=== PATIENT | male | born 1970 | race Caucasian/White ===

== ENCOUNTER 2017-05-25 00:15 | Inpatient (IN) | payer BC ==
[2017-05-25] MEDS ORDERED: DEXTROSE 50% 25 GM / 50ML DISP.SYRIN. IV ×2 (04:30→13:30)
[2017-05-25] MEDS ORDERED: NAPROXEN 500 MG TABLET PO (04:30)
[2017-05-25] MEDS ORDERED: PIP/TAZO PER PHARMACY MC (05:00)
[2017-05-25] MEDS: VANCOMYCIN RANDOM LEVEL. MC (06:00)
[2017-05-25] MEDS: PIPERACILLIN/TAZOBACTAM 4.5 GM in IV NORMAL SALINE 100ML 100 ML IV ×3 (06:24→21:00)
[2017-05-25] MEDS: traMADol 50 MG TABLET PO (06:35)
[2017-05-25 06:42] LABS: BASO # 0.1 x10^3/uL (0.0-0.2); BASO % 1 % (0-3); EOS # 0.1 x10^3/uL (0.0-0.7); EOS % 0 % (0-3); HEMATOCRIT 34.3 % (39.0-53.0); HEMOGLOBIN 11.4 g/dL (13.0-17.5); LYMPH # 0.9 x10^3/uL (1.0-4.8); LYMPH % 5 % (24-48); MEAN CORPUSCULAR HEMOGLOBIN 28 pg (25-35); MEAN CORPUSCULAR HGB CONC 33 g/dL (31-37); MEAN CORPUSCULAR VOLUME 85 fL (79-100); MONO # 1.3 x10^3/uL (0.0-1.1); MONO % 8 % (0-9); NEUT % 87 % (31-73); PLATELET COUNT 249 x10^3/uL (140-400); RED BLOOD COUNT 4.04 x10^6/uL (4.30-5.70); RED CELL DISTRIBUTION WIDTH 13.6 % (11.5-14.5); WHITE BLOOD COUNT 17.4 x10^3/uL (4.0-11.0)
[2017-05-25 06:47] LABS: ADD MAN DIFF? YES
[2017-05-25 06:54] LABS: ANION GAP 8 (6-14); BLOOD UREA NITROGEN 15 mg/dL (8-26); CALCIUM 8.1 mg/dL (8.5-10.1); CARBON DIOXIDE 29 mmol/L (21-32); CHLORIDE 100 mmol/L (98-107); CREATININE 1.3 mg/dL (0.7-1.3); GFR 59.4; GLUCOSE 65 mg/dL (70-99); SODIUM 137 mmol/L (136-145)
[2017-05-25 07:02] LABS: POTASSIUM 2.9 mmol/L (3.5-5.1)
[2017-05-25] MEDS: POTASSIUM CHLORIDE 20 MEQ TABLET.ER. PO ×2 (07:37→14:37)
[2017-05-25 07:55] LABS: POC GLUCOSE 63 mg/dL (70-99)
[2017-05-25] MEDS: INSULIN ASPART 300 UNITS/3 ML INSULN.PEN SQ ×3 (08:00→16:09)
[2017-05-25 08:11] LABS: POC GLUCOSE 143 mg/dL (70-99)
[2017-05-25] MEDS: ENOXAPARIN 40 MG/0.4 ML SYRINGE. SQ (08:32)
[2017-05-25] MEDS: VANCOMYCIN PER PHARMACY MC (08:42)
[2017-05-25 08:58] LABS: % BANDS 23 % (0-9); % LYMPHS 2 % (24-48); % MONOS 4 % (0-10); % SEGS 71 % (35-66); PLT ESTIMATE ADEQUATE (ADEQUATE)
[2017-05-25] MEDS: VANCOMYCIN 1.5 GM in IV DEXTROSE 5 %-0.45 % NACL 500 ML IV ×2 (09:20→21:56)
[2017-05-25 09:38] LABS: MAGNESIUM 2.1 mg/dL (1.8-2.4)
[2017-05-25 11:33] LABS: POC GLUCOSE 146 mg/dL (70-99)
[2017-05-25] MEDS: IV NORMAL SALINE 1000ML BAG 1,000 ML IV (13:59)
[2017-05-25] MEDS: HEPARIN PF for SUB-Q USE 5,000 UNIT/0.5 ML VIAL. SQ ×2 (14:15→21:06)
[2017-05-25] MEDS: MUPIROCIN 2 % NASAL OINTMENT 22GM TUBE. NS ×2 (14:43→21:00)
[2017-05-25] MEDS: ACETAMINOPHEN 325 MG TABLET. PO ×2 (14:43→21:00)
[2017-05-25 16:09] LABS: POC GLUCOSE 149 mg/dL (70-99)
[2017-05-25 20:31] LABS: POC GLUCOSE 276 mg/dL (70-99)
[2017-05-25] MEDS: LACTOBACILLUS RHAMNOSUS GG 1 CAPSULE. PO (20:59)
[2017-05-25] MEDS: INSULIN DETEMIR 300 UNITS/3 ML INSULN.PEN. SQ (21:05)
[2017-05-26] MEDS: PIPERACILLIN/TAZOBACTAM 4.5 GM in IV NORMAL SALINE 100ML 100 ML IV ×3 (05:43→23:25)
[2017-05-26] MEDS: HEPARIN PF for SUB-Q USE 5,000 UNIT/0.5 ML VIAL. SQ ×3 (05:47→21:14)
[2017-05-26 07:57] LABS: POC GLUCOSE 140 mg/dL (70-99)
[2017-05-26] MEDS: POTASSIUM CHLORIDE 20 MEQ TABLET.ER. PO (08:00)
[2017-05-26] MEDS: INSULIN ASPART 300 UNITS/3 ML INSULN.PEN SQ ×3 (08:37→19:00)
[2017-05-26] MEDS: LACTOBACILLUS RHAMNOSUS GG 1 CAPSULE. PO ×2 (09:00→21:00)
[2017-05-26] MEDS: MUPIROCIN 2 % NASAL OINTMENT 22GM TUBE. NS ×2 (09:00→21:00)
[2017-05-26] MEDS ORDERED: MORPHINE SULFATE 2 MG/ML DISP.SYRIN. IV (09:30)
[2017-05-26] MEDS ORDERED: PROCHLORPERAZINE 10 MG/2 ML VIAL. IV (09:30)
[2017-05-26] MEDS ORDERED: LIDOCAINE 1% PF 2 ML VIAL. ID (09:30)
[2017-05-26] MEDS ORDERED: fentaNYL PF VIAL 100 MCG/2 ML VIAL IV ×2 (09:30)
[2017-05-26] MEDS ORDERED: HYDROmorphone 2 MG/ML VIAL IV (09:30)
[2017-05-26] MEDS: VANCOMYCIN 1.5 GM in IV DEXTROSE 5 %-0.45 % NACL 500 ML IV ×2 (09:54→21:00)
[2017-05-26 11:31] LABS: POC GLUCOSE 157 mg/dL (70-99)
[2017-05-26] MEDS: VANCOMYCIN PER PHARMACY MC (12:46)
[2017-05-26] MEDS: IV RINGERS,LACTATED 1000ML 1,000 ML IV (13:02)
[2017-05-26] MEDS ORDERED: LIDOCAINE 2% PF Vial for OR 5 ML VIAL. (16:19)
[2017-05-26] MEDS ORDERED: PROPOFOL 20 ML IV (16:19)
[2017-05-26] MEDS ORDERED: ONDANSETRON PF 4 MG/2 ML VIAL. (16:19)
[2017-05-26] MEDS ORDERED: MIDAZOLAM HCL/PF 2 MG/2 ML VIAL. (16:19)
[2017-05-26] MEDS ORDERED: fentaNYL PF VIAL 100 MCG/2 ML VIAL ×2 (16:19→18:01)
[2017-05-26] MEDS ORDERED: SEVOFLURANE 61 TO 120 MINUTES. IH (16:19)
[2017-05-26] MEDS ORDERED: DEXAMETHASONE SOD PHOS 20 MG/5 ML VIAL. (16:19)
[2017-05-26] MEDS ORDERED: BUPIVACAINE-EPI 0.25%-1:200000 50 ML VIAL. (16:27)
[2017-05-26] MEDS ORDERED: oxyCODONE/APAP 5/325 1 TAB TABLET PO (18:30)
[2017-05-26 20:38] LABS: POC GLUCOSE 246 mg/dL (70-99)
[2017-05-26] MEDS: oxyCODONE/APAP 5/325 1 TAB TABLET PO (21:01)
[2017-05-26] MEDS: INSULIN DETEMIR 300 UNITS/3 ML INSULN.PEN. SQ (21:14)
[2017-05-26] MEDS: ZOLPIDEM 5 MG TABLET. PO (23:25)
[2017-05-27 01:12] LABS: HEMOGLOBIN A1C 9.3 % (4.8-5.6)
[2017-05-27] MEDS: PIPERACILLIN/TAZOBACTAM 4.5 GM in IV NORMAL SALINE 100ML 100 ML IV ×3 (05:41→23:07)
[2017-05-27] MEDS: HEPARIN PF for SUB-Q USE 5,000 UNIT/0.5 ML VIAL. SQ ×3 (05:49→21:08)
[2017-05-27 06:40] LABS: CREATININE 1.3 mg/dL (0.7-1.3)
[2017-05-27 06:40] LABS: GFR 59.4
[2017-05-27] MEDS: POTASSIUM CHLORIDE 20 MEQ TABLET.ER. PO (08:08)
[2017-05-27] MEDS: INSULIN ASPART 300 UNITS/3 ML INSULN.PEN SQ ×5 (08:14→17:03)
[2017-05-27] MEDS: LACTOBACILLUS RHAMNOSUS GG 1 CAPSULE. PO ×2 (08:15→21:10)
[2017-05-27 08:24] LABS: POC GLUCOSE 277 mg/dL (70-99)
[2017-05-27] MEDS: VANCOMYCIN 1.5 GM in IV DEXTROSE 5 %-0.45 % NACL 500 ML IV ×2 (10:00→20:57)
[2017-05-27] MEDS: MUPIROCIN 2 % NASAL OINTMENT 22GM TUBE. NS ×2 (10:01→21:00)
[2017-05-27] MEDS: LOPERAMIDE 2 MG CAPSULE PO (10:02)
[2017-05-27 11:29] LABS: POC GLUCOSE 353 mg/dL (70-99)
[2017-05-27] MEDS: FLUCONAZOLE 100 MG TABLET. PO (12:02)
[2017-05-27] MEDS: oxyCODONE/APAP 5/325 1 TAB TABLET PO (15:06)
[2017-05-27 17:01] LABS: POC GLUCOSE 406 mg/dL (70-99)
[2017-05-27 19:36] LABS: POC GLUCOSE 339 mg/dL (70-99)
[2017-05-27] MEDS: INSULIN DETEMIR 300 UNITS/3 ML INSULN.PEN. SQ (21:09)
[2017-05-27] MEDS: guaiFENesin DM 600/30MG 1 TAB TAB.ER.12H PO ×2 (22:05→23:07)
[2017-05-27] MEDS: ZOLPIDEM 5 MG TABLET. PO (23:07)
[2017-05-28] MEDS: PIPERACILLIN/TAZOBACTAM 4.5 GM in IV NORMAL SALINE 100ML 100 ML IV ×3 (05:27→22:12)
[2017-05-28] MEDS: HEPARIN PF for SUB-Q USE 5,000 UNIT/0.5 ML VIAL. SQ ×3 (05:40→22:14)
[2017-05-28 05:43] LABS: ADD MAN DIFF? NO
[2017-05-28 06:04] LABS: BASO # 0.1 x10^3/uL (0.0-0.2); BASO % 0 % (0-3); EOS # 0.1 x10^3/uL (0.0-0.7); EOS % 0 % (0-3); HEMATOCRIT 33.4 % (39.0-53.0); HEMOGLOBIN 10.9 g/dL (13.0-17.5); LYMPH # 1.5 x10^3/uL (1.0-4.8); LYMPH % 8 % (24-48); MEAN CORPUSCULAR HEMOGLOBIN 28 pg (25-35); MEAN CORPUSCULAR HGB CONC 33 g/dL (31-37); MEAN CORPUSCULAR VOLUME 85 fL (79-100); MONO # 0.9 x10^3/uL (0.0-1.1); MONO % 5 % (0-9); NEUT % 87 % (31-73); PLATELET COUNT 372 x10^3/uL (140-400); RED BLOOD COUNT 3.92 x10^6/uL (4.30-5.70); RED CELL DISTRIBUTION WIDTH 13.9 % (11.5-14.5); WHITE BLOOD COUNT 19.5 x10^3/uL (4.0-11.0)
[2017-05-28 06:14] LABS: ANION GAP 7 (6-14); BLOOD UREA NITROGEN 18 mg/dL (8-26); CALCIUM 8.6 mg/dL (8.5-10.1); CARBON DIOXIDE 29 mmol/L (21-32); CHLORIDE 102 mmol/L (98-107); CREATININE 1.2 mg/dL (0.7-1.3); GFR 65.2; GLUCOSE 265 mg/dL (70-99); POTASSIUM 3.5 mmol/L (3.5-5.1); SODIUM 138 mmol/L (136-145)
[2017-05-28] MEDS: glipiZIDE 5 MG TABLET PO (07:44)
[2017-05-28] MEDS: POTASSIUM CHLORIDE 20 MEQ TABLET.ER. PO (07:44)
[2017-05-28] MEDS: INSULIN ASPART 300 UNITS/3 ML INSULN.PEN SQ ×3 (07:50→17:00)
[2017-05-28 07:54] LABS: POC GLUCOSE 173 mg/dL (70-99)
[2017-05-28] MEDS: VANCOMYCIN 1.5 GM in IV DEXTROSE 5 %-0.45 % NACL 500 ML IV ×2 (09:20→20:07)
[2017-05-28] MEDS: LACTOBACILLUS RHAMNOSUS GG 1 CAPSULE. PO ×2 (09:20→20:07)
[2017-05-28] MEDS: guaiFENesin DM 600/30MG 1 TAB TAB.ER.12H PO ×2 (09:21→20:07)
[2017-05-28] MEDS: FLUCONAZOLE 100 MG TABLET. PO (09:21)
[2017-05-28] MEDS: MUPIROCIN 2 % NASAL OINTMENT 22GM TUBE. NS ×2 (09:22→22:17)
[2017-05-28 12:10] LABS: POC GLUCOSE 152 mg/dL (70-99)
[2017-05-28] MEDS: LOPERAMIDE 2 MG CAPSULE PO (14:37)
[2017-05-28] MEDS: SODIUM HYPOCHLORITE 0.125% 473 ML BOTTLE. TP (14:37)
[2017-05-28] MEDS: VANCOMYCIN PER PHARMACY MC (14:38)
[2017-05-28 16:29] LABS: POC GLUCOSE 98 mg/dL (70-99)
[2017-05-28] MEDS: ZOLPIDEM 5 MG TABLET. PO (20:07)
[2017-05-28] MEDS: ACETAMINOPHEN 325 MG TABLET. PO (20:07)
[2017-05-28 20:42] LABS: POC GLUCOSE 176 mg/dL (70-99)
[2017-05-28] MEDS: INSULIN DETEMIR 300 UNITS/3 ML INSULN.PEN. SQ (22:15)
[2017-05-29] MEDS: PIPERACILLIN/TAZOBACTAM 4.5 GM in IV NORMAL SALINE 100ML 100 ML IV (05:51)
[2017-05-29] MEDS: HEPARIN PF for SUB-Q USE 5,000 UNIT/0.5 ML VIAL. SQ ×2 (05:59→14:00)
[2017-05-29 06:16] LABS: ADD MAN DIFF? NO
[2017-05-29 06:29] LABS: BASO # 0.1 x10^3/uL (0.0-0.2); BASO % 1 % (0-3); EOS # 0.2 x10^3/uL (0.0-0.7); EOS % 1 % (0-3); HEMATOCRIT 35.3 % (39.0-53.0); HEMOGLOBIN 11.5 g/dL (13.0-17.5); LYMPH # 1.2 x10^3/uL (1.0-4.8); LYMPH % 7 % (24-48); MEAN CORPUSCULAR HEMOGLOBIN 28 pg (25-35); MEAN CORPUSCULAR HGB CONC 33 g/dL (31-37); MEAN CORPUSCULAR VOLUME 84 fL (79-100); MONO # 0.9 x10^3/uL (0.0-1.1); MONO % 5 % (0-9); NEUT # 14.2 x10^3uL (1.8-7.7); NEUT % 86 % (31-73); PLATELET COUNT 448 x10^3/uL (140-400); RED BLOOD COUNT 4.19 x10^6/uL (4.30-5.70); RED CELL DISTRIBUTION WIDTH 13.8 % (11.5-14.5); WHITE BLOOD COUNT 16.5 x10^3/uL (4.0-11.0)
[2017-05-29 06:44] LABS: ANION GAP 7 (6-14); BLOOD UREA NITROGEN 16 mg/dL (8-26); CALCIUM 8.4 mg/dL (8.5-10.1); CARBON DIOXIDE 31 mmol/L (21-32); CHLORIDE 104 mmol/L (98-107); CREATININE 1.3 mg/dL (0.7-1.3); GFR 59.4; GLUCOSE 86 mg/dL (70-99); POTASSIUM 3.5 mmol/L (3.5-5.1); SODIUM 142 mmol/L (136-145)
[2017-05-29 07:35] LABS: POC GLUCOSE 73 mg/dL (70-99)
[2017-05-29] MEDS: INSULIN ASPART 300 UNITS/3 ML INSULN.PEN SQ ×2 (08:00→11:16)
[2017-05-29] MEDS: glipiZIDE 5 MG TABLET PO (08:15)
[2017-05-29] MEDS: POTASSIUM CHLORIDE 20 MEQ TABLET.ER. PO (08:15)
[2017-05-29] MEDS: guaiFENesin DM 600/30MG 1 TAB TAB.ER.12H PO (09:43)
[2017-05-29] MEDS: LACTOBACILLUS RHAMNOSUS GG 1 CAPSULE. PO (09:43)
[2017-05-29] MEDS: VANCOMYCIN 1.5 GM in IV DEXTROSE 5 %-0.45 % NACL 500 ML IV (09:43)
[2017-05-29] MEDS: FLUCONAZOLE 100 MG TABLET. PO (09:43)
[2017-05-29] MEDS: SODIUM HYPOCHLORITE 0.125% 473 ML BOTTLE. TP (09:45)
[2017-05-29] MEDS: MUPIROCIN 2 % NASAL OINTMENT 22GM TUBE. NS (09:45)
[2017-05-29 11:17] LABS: POC GLUCOSE 137 mg/dL (70-99)
[2017-05-29] MEDS: ERTAPENEM 1GM IVPB FOR OMNI 50 ML IV (11:34)
[2017-05-29 15:06] LABS: POC GLUCOSE 347 mg/dL (70-99)
== END 2017-05-29 16:15 | disposition home health service (06) | DRG 854 ==
LOC: 5 NORTH 00:15
PROC: 0J9C0ZZ Drainage of Pelvic Region Subcutaneous Tissue and Fascia, Open Approach (ICD-10-PCS; principal; 2017-05-26 16:00)
DX: A41.9 Sepsis, unspecified organism (principal); L02.214 Cutaneous abscess of groin; E66.01 Morbid (severe) obesity due to excess calories; L03.115 Cellulitis of right lower limb; Z68.42 Body mass index [BMI] 45.0-49.9, adult; L03.314 Cellulitis of groin; E11.9 Type 2 diabetes mellitus without complications; E78.5 Hyperlipidemia, unspecified; E87.6 Hypokalemia; F17.210 Nicotine dependence, cigarettes, uncomplicated; F32.9 Major depressive disorder, single episode, unspecified; I10 Essential (primary) hypertension; J45.909 Unspecified asthma, uncomplicated; Z79.4 Long term (current) use of insulin; Z79.82 Long term (current) use of aspirin; Z79.899 Other long term (current) drug therapy
CPT/HCPCS: 36415; 80048; 80202; 82565; 82962; 83036; 83735; 85007; 85025; 87040; 87071; 87075; 87205; 99406; J1100; J1335; J1815; J2250; J2405; J2543; J2704; J3010; J3370; J7030; J7120

== ENCOUNTER → 2017-07-01 | Outpatient (CLI) | payer BC | END | disposition home or self-care (01) | LOC: PMGWOUND 08:37 | DX: L02.214 Cutaneous abscess of groin (principal); E11.9 Type 2 diabetes mellitus without complications; I10 Essential (primary) hypertension; E78.5 Hyperlipidemia, unspecified; F32.9 Major depressive disorder, single episode, unspecified; F17.200 Nicotine dependence, unspecified, uncomplicated; J45.909 Unspecified asthma, uncomplicated; Z68.42 Body mass index [BMI] 45.0-49.9, adult; Z79.4 Long term (current) use of insulin | CPT/HCPCS: 99215 ==

== ENCOUNTER → 2017-07-08 | Outpatient (CLI) | payer BC | END | disposition home or self-care (01) | LOC: PMGWOUND 09:34 | DX: L02.214 Cutaneous abscess of groin (principal); E11.9 Type 2 diabetes mellitus without complications; I10 Essential (primary) hypertension; E78.5 Hyperlipidemia, unspecified; F32.9 Major depressive disorder, single episode, unspecified; F17.200 Nicotine dependence, unspecified, uncomplicated; E66.01 Morbid (severe) obesity due to excess calories; J45.909 Unspecified asthma, uncomplicated; E78.1 Pure hyperglyceridemia; Z79.4 Long term (current) use of insulin; Z79.82 Long term (current) use of aspirin; Z68.42 Body mass index [BMI] 45.0-49.9, adult | CPT/HCPCS: 99214 ==

== ENCOUNTER → 2017-07-22 | Outpatient (CLI) | payer BC | END | disposition home or self-care (01) | LOC: PMGWOUND 07:47 | DX: L02.214 Cutaneous abscess of groin (principal); E11.9 Type 2 diabetes mellitus without complications; I10 Essential (primary) hypertension; E78.5 Hyperlipidemia, unspecified; F32.9 Major depressive disorder, single episode, unspecified; F17.200 Nicotine dependence, unspecified, uncomplicated; E66.01 Morbid (severe) obesity due to excess calories; J45.909 Unspecified asthma, uncomplicated; E78.1 Pure hyperglyceridemia; Z79.4 Long term (current) use of insulin; Z79.82 Long term (current) use of aspirin; Z68.42 Body mass index [BMI] 45.0-49.9, adult | CPT/HCPCS: 99214 ==

== ENCOUNTER → 2017-08-06 | Outpatient (CLI) | payer BC | END | disposition home or self-care (01) | LOC: PMGWOUND 11:21 | DX: L02.214 Cutaneous abscess of groin (principal); E11.9 Type 2 diabetes mellitus without complications; I10 Essential (primary) hypertension; E78.5 Hyperlipidemia, unspecified; F32.9 Major depressive disorder, single episode, unspecified; F17.200 Nicotine dependence, unspecified, uncomplicated; E66.01 Morbid (severe) obesity due to excess calories; J45.909 Unspecified asthma, uncomplicated; E78.1 Pure hyperglyceridemia; Z79.4 Long term (current) use of insulin; Z79.82 Long term (current) use of aspirin | CPT/HCPCS: 99213 ==